=== PATIENT | male | born 1945 | race Hispanic/Latino ===

== ENCOUNTER 2018-05-06 09:15 | Observation (INO) | payer OTHER ==
[~2018-05-06] VITALS: Ht 170.2 cm; Wt 69.6 kg
[2018-05-06] MEDS ORDERED: HYDRALAZINE HCL 20 MG/ML VIAL IV PRN (10:00)
[2018-05-06] MEDS ORDERED: DiphenhydrAMINE HCL 50 MG/ML VIAL IV PRN (10:15)
[2018-05-06] MEDS ORDERED: METHYLPREDNISOLONE SOD SUCC 125MG/2ML VIAL IVP PRN (10:15)
[2018-05-06 10:19] LABS: BASOPHILS % (AUTO) 0.8 % (0.0-5.0); EOSINOPHILS % (AUTO) 4.8 % (0.0-8.0); HEMATOCRIT 40.2 % (42-54); LYMPHOCYTES % (AUTO) 29.1 % (21.0-51.0); MEAN CORPUSCULAR HEMOGLOBIN 28.5 pg (27.0-33.0); MEAN CORPUSCULAR HGB CONC 32.7 g/dL (32.0-36.0); MEAN CORPUSCULAR VOLUME 87.3 fL (79-99); MONOCYTES % (AUTO) 8.1 % (3.0-13.0); NEUTROPHILS % (AUTO) 57.2 % (40.0-77.0); NUCLEATED RED BLOOD CELLS 0.1 % (0.0-0.19); PLATELET COUNT (AUTO) 326 K/uL (130-400); RED CELL DISTRIBUTION WIDTH 14.9 % (11.0-15.5)
[2018-05-06 10:22] LABS: POTASSIUM 4.6 mmol/L (3.5-5.1)
[2018-05-06 10:25] LABS: % IRON SATURATION 21.8 % (30-44)
[2018-05-06] MEDS ORDERED: IRON SUCROSE COMPLEX 500 MG in SODIUM CHLORIDE 0.9% 250 ML IV SCH (11:03)
[2018-05-06] MEDS ORDERED: HYDRALAZINE HCL 20 MG/ML VIAL ONE (18:04)
--- NOTE | 2018-05-06 20:00 | NUR ---
ADMISSION. PT TRANSFERRED FROM ER INTO ROOM 408 VIA WHEEL CHAIR. PT AWAKE ALERT AND RESPONSIVE. NO C/O PAIN OR DISCOMFORT AT THIS TIME. PT ORIENTED TO ROOM, BED IN LOWEST POSITION, CALL MAYERS IN REACH. Addendum: 05/06/18 at 2023 by MEEK GONSALES RN Amended: Links added.
[2018-05-06 20:12] VITALS: BP 155/102
[2018-05-07] VITALS: BP 163/103
[2018-05-07 03:36] VITALS: BP 136/92
[2018-05-07] MEDS ORDERED: CLOP75TA32 PO (05:57)
[2018-05-07] MEDS ORDERED: LISI2.5T2 PO (05:57)
[2018-05-07] MEDS ORDERED: METO25 PO (05:57)
[2018-05-07] MEDS ORDERED: ATOR40TA69 PO (05:57)
[2018-05-07] MEDS ORDERED: FINA5TAB41 PO (05:57)
[2018-05-07] MEDS ORDERED: METF-444 PO (05:57)
[2018-05-07] MEDS ORDERED: GLIP5TAB11 PO (05:57)
[2018-05-07] MEDS ORDERED: ASPI-555 PO (05:57)
--- NOTE | 2018-05-07 07:15 | NUR ---
PT STATUS. PT MADE NURSE AWARE THIS MORNING THAT HE HAD TWO EPISODES OF BLOODY URINE DURING THE NIGHT BUT DID NOT MAKE NURSE AWARE AT THE TIME OF EPISODES. PT BRIEF NOTED TO TO HAVE DRIED BROWN COLOR TO THEM. NO C/O PAIN UPON URINATION OR DIFFICULTY URINATING. BLADDER SCAN PERFORMED FOR POSSIBLE URINARY RETENTION, 0ML IN BLADDER. NO REDNESS OR BLEEDING NOTED TO PENAL AREA. PT URINATED IN THE TOILET THIS MORNING, COLOR WAS ORANGE (NOT RED COLORED). HOSPITALIST GROUP PAGED. AWAITING CALL BACK. MORNING NURSE MADE AWARE.
[2018-05-07 07:30] VITALS: BP 156/88
--- NOTE | 2018-05-07 10:40 | NUR ---
As per admission database, pt refuses flu shot. Addendum: 05/07/18 at 1044 by MICHELLE YOUNG RN RN Amended: Links added.
--- NOTE | 2018-05-07 11:05 | NUR ---
Spoke with Giuseppe Nicole , notified her pt. is discharged, states she will call her son to come get the pt.
--- NOTE | 2018-05-07 11:11 | NUR ---
Discharge instructions provided in [place] by Alex Frost RN. Emphasis on dx, s/s to monitor for, and when to seek emergency care / call 911. Pt has no new rx. Instructed to resume previous home medications as ordered by MD. Follow up appts set with PCP on 05/[address] Santillan on 06/05 0. PIV removed by primary nurse Mohamud Jones RN. Awaiting arrival of ride. Endorsed to primary nurse.
== END 2018-05-07 12:10 | disposition home or self-care (01) ==
LOC: EDH 09:15 → EDHIP 09:55 → 4BH 18:42
PROVIDERS: ADMIT Internal Medicine; ATTEND Internal Medicine
DX: D50.9 Iron deficiency anemia, unspecified (principal); I11.0 Hypertensive heart disease with heart failure; I50.42 Chronic combined systolic (congestive) and diastolic (congestive) heart failure; E11.69 Type 2 diabetes mellitus with other specified complication; E78.2 Mixed hyperlipidemia; I21.9 Acute myocardial infarction, unspecified; I25.2 Old myocardial infarction; I25.5 Ischemic cardiomyopathy; Z95.1 Presence of aortocoronary bypass graft
CPT/HCPCS: 36415; 80048; 82948 ×2; 83540; 83550; 85025; 99284; G0378 ×26; J0360; J1756; J7030

== ENCOUNTER → 2018-06-10 | Outpatient (CLI) | payer OTHER ==
[~2018-06-10] MED LIST: ASPI-555 PO; ATOR40TA69 PO; CLOP75TA32 PO; FINA5TAB41 PO; GLIP5TAB11 PO; LISI2.5T2 PO; METF-444 PO; METO25 PO
== END | disposition home or self-care (01) ==
LOC: SHCH 07:50
PROVIDERS: ATTEND Internal Medicine Cardiovascular Disease
DX: I50.22 Chronic systolic (congestive) heart failure (principal); Z95.1 Presence of aortocoronary bypass graft
CPT/HCPCS: 93306

== ENCOUNTER → 2019-02-23 | Outpatient (CLI) | payer OTHER | END | disposition home or self-care (01) | LOC: SHCH 08:59 | PROVIDERS: ATTEND Internal Medicine Cardiovascular Disease | DX: M79.604 Pain in right leg (principal) | CPT/HCPCS: 93922 ==

== ENCOUNTER 2020-05-31 09:57 | Day surgery (SDC) | payer OTHER ==
[2020-05-30 13:59] LABS: BASOPHILS % (AUTO) 0.7 % (0.0-5.0); EOSINOPHILS % (AUTO) 5.9 % (0.0-8.0); HEMATOCRIT 43.8 % (42-54); LYMPHOCYTES % (AUTO) 30.8 % (21.0-51.0); MEAN CORPUSCULAR HEMOGLOBIN 29.8 pg (27.0-33.0); MEAN CORPUSCULAR HGB CONC 32.9 g/dL (32.0-36.0); MEAN CORPUSCULAR VOLUME 90.7 fL (79-99); MONOCYTES % (AUTO) 8.6 % (3.0-13.0); NEUTROPHILS % (AUTO) 53.7 % (40.0-77.0); PLATELET COUNT (AUTO) 238 K/uL (130-400); RED BLOOD CELL COUNT(AUTO) 4.83 MIL/uL (4.50-6.20); RED CELL DISTRIBUTION WIDTH 12.5 % (11.0-15.5); WHITE BLOOD COUNT (AUTO) 8.8 K/uL (4.8-10.8)
[2020-05-30 14:07] LABS: CREATININE 1.1 mg/dL (0.5-1.5); POTASSIUM 4.7 mmol/L (3.5-5.1)
[2020-05-30 14:10] LABS: INR 1.02 (0.85-1.15); PROTHROMBIN TIME 10.9 SEC (9.6-11.6)
[2020-05-30 14:12] LABS: PARTIAL THROMBOPLASTIN TIME 28.2 SEC (26.3-35.5)
[2020-05-30 14:20] LABS: APPEARANCE,URINE Clear (CLEAR); BILIRUBIN,URINE Negative (NEGATIVE); COLOR,URINE Yellow (YELLOW); GLUCOSE, URINE (UA) Negative (NEGATIVE); KETONES,URINE Negative (NEGATIVE); LEUKOCYTE ESTERASE ,URINE Negative (NEGATIVE); NITRATE,URINE Negative (NEGATIVE); OCCULT BLOOD,URINE Negative (NEGATIVE); PH,URINE 6.5 (5.0-8.0); PROTEIN,URINE Negative (NEGATIVE); UROBILINOGEN,URINE 0.2 mg/dL (0.2-1.0)
[2020-05-30 14:32] VITALS: BP 139/72
[~2020-05-31] VITALS: Ht 162.6 cm; Wt 72.2 kg
[2020-05-31] VITALS (15 sets, daily range): BP systolic 123–156; BP diastolic 64–86
[~2020-05-31 09:57] MED LIST changes: -ASPI-555 PO; +ASPI-556 PO; +GENTAMICIN 80 MG/NS 100 ML PB 100 ML IV SCH
[2020-05-31] MEDS: CEFTRIAXONE SODIUM 1 GM IVP SCH ×2 (10:30→13:30)
[2020-05-31] MEDS ORDERED: SODIUM CHLORIDE 0.9% 1000ML 1,000 ML IV ONE (10:46)
[2020-05-31] MEDS ORDERED: LIDOCAINE PF 2% 5ML ABBOJECT ONE (13:21)
[2020-05-31] MEDS ORDERED: DEXAMETHASONE SOD PHOSPHATE 10MG/ML 1ML VIAL ONE (13:21)
[2020-05-31] MEDS ORDERED: MIDAZOLAM HCL 1 MG/ML 2ML VIAL ONE (13:22)
[2020-05-31] MEDS ORDERED: FENTANYL CITRATE PF 50 MCG/1 ML 2ML VIAL ONE (13:22)
[2020-05-31] MEDS ORDERED: ONDANSETRON HCL 4 MG/2 ML VIAL ONE (13:22)
[2020-05-31] MEDS ORDERED: ROCURONIUM 10MG/1ML SYR 10 MG/ML ML ONE (13:22)
[2020-05-31] MEDS ORDERED: PROPOFOL 10 MG/ML 20ML VIAL IV ONE (13:22)
[2020-05-31] MEDS ORDERED: EPHEDRINE SULFATE 50 MG/ML AMPULE ONE (13:35)
[2020-05-31] MEDS ORDERED: NEOSTIGMINE 5MG/5ML SYR IV ONE (14:52)
[2020-05-31] MEDS ORDERED: GLYCOPYRROLATE 1 MG/5 ML SYRINGE ONE (14:52)
== END 2020-05-31 17:05 | disposition home or self-care (01) ==
LOC: DAH 09:57
PROVIDERS: ATTEND Urology
DX: N40.1 Benign prostatic hyperplasia with lower urinary tract symptoms (principal); N21.0 Calculus in bladder; I10 Essential (primary) hypertension; E11.9 Type 2 diabetes mellitus without complications; Z79.01 Long term (current) use of anticoagulants; Z86.73 Personal history of transient ischemic attack (TIA), and cerebral infarction without residual deficits; Z20.828 Contact with and (suspected) exposure to other viral communicable diseases
CPT/HCPCS: 36415 ×2; 52317; 52648; 71045; 80048; 81003; 82360; 82948 ×2; 85025; 85610; 85730; 87088; 87426; 93005; A4215; A4221; A4222; A4223; A4354; A4358 ×2; A4600; A4649; A4663; A6260; J0696; J1100; J1580; J2001; J2250; J2405; J2704; J2710; J3010; J3490 ×2; J7030 ×2; U0003

== ENCOUNTER → 2021-07-19 | Outpatient (CLI) | payer OTHER ==
[~2021-07-19] MED LIST changes: -GENTAMICIN 80 MG/NS 100 ML PB 100 ML IV SCH; +LISI2.5T13 PO; -LISI2.5T2 PO
== END | disposition home or self-care (01) ==
LOC: SHCH 12:25
PROVIDERS: ATTEND Internal Medicine Cardiovascular Disease
DX: I11.0 Hypertensive heart disease with heart failure (principal); I50.33 Acute on chronic diastolic (congestive) heart failure; I35.8 Other nonrheumatic aortic valve disorders; I25.2 Old myocardial infarction; E11.9 Type 2 diabetes mellitus without complications; E78.5 Hyperlipidemia, unspecified
CPT/HCPCS: 93306

== ENCOUNTER 2021-10-11 07:06 | Day surgery (SDC) | payer OTHER ==
[2021-10-09 10:42] LABS: BASOPHILS % (AUTO) 0.7 % (0.0-5.0); EOSINOPHILS % (AUTO) 5.6 % (0.0-8.0); HEMATOCRIT 43.5 % (42-54); LYMPHOCYTES % (AUTO) 28.3 % (21.0-51.0); MEAN CORPUSCULAR HEMOGLOBIN 29.2 pg (27.0-33.0); MEAN CORPUSCULAR HGB CONC 32.4 g/dL (32.0-36.0); MEAN CORPUSCULAR VOLUME 90.1 fL (79-99); MONOCYTES % (AUTO) 8.1 % (3.0-13.0); NEUTROPHILS % (AUTO) 56.9 % (40.0-77.0); PLATELET COUNT (AUTO) 251 K/uL (130-400); RED BLOOD CELL COUNT(AUTO) 4.83 MIL/uL (4.50-6.20); RED CELL DISTRIBUTION WIDTH 13.3 % (11.0-15.5); WHITE BLOOD COUNT (AUTO) 8.5 K/uL (4.8-10.8)
[2021-10-09 10:51] LABS: CREATININE 1.1 mg/dL (0.5-1.5); POTASSIUM 4.3 mmol/L (3.5-5.1)
[2021-10-09 10:53] LABS: INR 0.96 (0.85-1.15); PROTHROMBIN TIME 10.5 SEC (9.6-11.6)
[2021-10-09 10:55] LABS: PARTIAL THROMBOPLASTIN TIME 29.1 SEC (26.3-35.5)
[2021-10-09 11:05] LABS: B-TYPE NATRIURETIC PEPTIDE 57 pg/mL (0-100)
[2021-10-09 11:26] LABS: APPEARANCE,URINE Cloudy (CLEAR); BILIRUBIN,URINE Negative (NEGATIVE); COLOR,URINE Yellow (YELLOW); GLUCOSE, URINE (UA) 500 mg/dL (NEGATIVE); KETONES,URINE Trace mg/dL (NEGATIVE); LEUKOCYTE ESTERASE ,URINE Moderate (NEGATIVE); NITRATE,URINE Positive (NEGATIVE); OCCULT BLOOD,URINE Negative (NEGATIVE); PROTEIN,URINE Trace mg/dL (NEGATIVE)
[2021-10-09 11:50] LABS: BACTERIA,URINE Moderate /HPF (None Seen); RBC,URINE None Seen /HPF (0-1)
[2021-10-09 11:52] LABS: SQUAMOUS EPITHELIAL CELL,UR 0-2 /HPF (0-2); URIC ACID CRYSTALS,URINE Few /LPF (None Seen)
[2021-10-10 10:56] VITALS: BP 118/65
[2021-10-11] VITALS (8 sets, daily range): BP systolic 115–139; BP diastolic 64–70
[~2021-10-11] VITALS: Ht 157.5 cm; Wt 68.0 kg
[~2021-10-11 07:06] MED LIST changes: +0.9% NACL 500ML IV.SOLN 500 ML IV SCH; -ATOR40TA69 PO; -FINA5TAB41 PO; -LISI2.5T13 PO; +METO-408 PO; -METO25 PO; +ROSU20TA31 PO; +SACU1TAB PO
[2021-10-11] MEDS ORDERED: IOHEXOL-350 50ML VIAL IV ONE (09:17)
[2021-10-11] MEDS ORDERED: IOHEXOL 350 MG/ML 100ML INFUS..BTL IV ONE (09:17)
[2021-10-11] MEDS ORDERED: MIDAZOLAM HCL 1 MG/ML 2ML VIAL ONE (09:17)
[2021-10-11] MEDS ORDERED: NITROGLYCERIN 50MG VIAL ONE (09:17)
[2021-10-11] MEDS ORDERED: HEPARIN 10,000 UNIT/10ML (1,000 UNIT/ML) VIAL ONE (09:17)
[2021-10-11] MEDS ORDERED: FENTANYL CITRATE PF 50 MCG/1 ML 2ML VIAL ONE (09:18)
[2021-10-11] MEDS ORDERED: LIDOCAINE HCL 1% MDV 50ML VIAL ONE (09:18)
[2021-10-11] MEDS ORDERED: 0.9%NACL 1000ML 1,000 ML IV SCH (11:00)
== END 2021-10-11 14:10 | disposition home or self-care (01) ==
LOC: DAH 07:06
PROVIDERS: ATTEND Internal Medicine Cardiovascular Disease
DX: I25.709 Atherosclerosis of coronary artery bypass graft(s), unspecified, with unspecified angina pectoris (principal); I11.0 Hypertensive heart disease with heart failure; I50.9 Heart failure, unspecified; E11.9 Type 2 diabetes mellitus without complications; E78.2 Mixed hyperlipidemia; Z79.84 Long term (current) use of oral hypoglycemic drugs; Z79.82 Long term (current) use of aspirin; Z79.01 Long term (current) use of anticoagulants; Z79.899 Other long term (current) drug therapy
CPT/HCPCS: 36415; 71045; 80048; 81001; 82948; 83880; 85025; 85610; 85730; 87077; 87088; 87186; 93005; 93459; A4215; A4216; A4221; A4222; A4223 ×3; A4606; A4663; C1760; C1769; C1894 ×2; J1644; J2250; J3010; J3490 ×2; Q9965 ×2; Q9967 ×2; 96360; 96361; 99156; 99157